=== PATIENT | female | born 1955 | race American Indian/Alaskan Native ===

== ENCOUNTER 2017-05-17 15:01 | Inpatient (IN) | payer OTHER ==
[~2017-05-17] VITALS: Ht 157.5 cm; Wt 69.1 kg
[2017-05-17 16:54] LABS: EOSINOPHIL (%) 0.1 % (0-5); HEMATOCRIT 39.8 % (36.0-46.0); IMMATURE GRANULOCYTE (%) 0.5 % (0.0-0.7); IMMATURE GRANULOCYTE COUNT 0.1 K/uL; INSTRUMENT ABS NEUTROPHIL CT 13.4 K/uL; LYMPHOCYTE COUNT 1.2 K/uL (1.0-2.8); MCH 30.5 PG (29.0-34.0); MCHC 33.4 G/DL (30.0-36.0); MCV 91.3 FL (83-99); MONOCYTE (%) 3.9 % (3-12); MONOCYTE COUNT 0.6 K/uL (0-0.8); NEUTROPHIL (%) 87.2 % (45-76); NEUTROPHIL COUNT 13.4 K/uL (1.8-6.4); PLATELET COUNT 193 K/uL (156-360); RBC DIS.WIDTH-CV 11.7 % (11.8-14.6); RBC DIS.WIDTH-SD 39.1 % (39-53); RED BLOOD COUNT 4.36 M/uL (3.80-5.20); WHITE BLOOD COUNT 15.3 K/uL (4.1-10.2)
[2017-05-17 17:00] LABS: PROTHROMBIN TIME 11.3 SEC (10.2-12.9)
[2017-05-17] MEDS ORDERED: METFORMIN HCL500 MG PO (17:00)
[2017-05-17] MEDS ORDERED: CRESTOR10 MG PO (17:00)
[2017-05-17] MEDS ORDERED: MICARDIS40 MG PO (17:01)
[2017-05-17 17:02] LABS: CHLORIDE 106 mEq/L (99-109); POTASSIUM 4.6 mEq/L (3.7-5.4); SODIUM 141 mEq/L (136-147)
[2017-05-17 17:03] LABS: GLUCOSE 160 mg/dL (70-99)
[2017-05-17 17:05] LABS: ANION GAP 12 MEQ/L (2-14)
[2017-05-17 17:07] LABS: GFR ESTIMATE (CALCULATED) > 59 mL/min/
[2017-05-17 17:08] LABS: UREA NITROGEN (BUN) 11 mg/dL (9-23)
[2017-05-17 21:56] VITALS: BP 141/78
[2017-05-17 23:09] VITALS: BP 131/65
[2017-05-18 03:54] VITALS: BP 124/61
[2017-05-18 08:04] VITALS: BP 121/67
[2017-05-18 10:36] VITALS: BP 123/63
[2017-05-18 15:08] VITALS: BP 114/65
[2017-05-18 16:04] LABS: POINT-OF-CARE METER ID UU14117124
[2017-05-18 19:54] LABS: POINT-OF-CARE METER ID UU13113675; POINT-OF-CARE USER ID ADMKMM76
[2017-05-18 21:21] VITALS: BP 91/60
[2017-05-18 21:58] LABS: POINT-OF-CARE METER ID UU14188577
[2017-05-19] VITALS (7 sets, daily range): BP systolic 97–137; BP diastolic 53–72
[2017-05-19 06:21] LABS: POINT-OF-CARE METER ID UU14188577
[2017-05-19 07:21] LABS: HEMATOCRIT 31.2 % (36.0-46.0); MCH 30.7 PG (29.0-34.0); MCV 93.1 FL (83-99); MEAN PLAT.VOLUME 9.5 uM^3 (9.5-12.4); PLATELET COUNT 144 K/uL (156-360); RBC DIS.WIDTH-CV 11.9 % (11.8-14.6); RBC DIS.WIDTH-SD 40.8 % (39-53); WHITE BLOOD COUNT 8.3 K/uL (4.1-10.2)
[2017-05-19 07:22] LABS: ANION GAP 4 MEQ/L (2-14); CHLORIDE 101 MEQ/L (99-109); GFR ESTIMATE (CALCULATED) > 59 mL/min/; GLUCOSE 158 mg/dL (70-99); POTASSIUM 4.4 MEQ/L (3.7-5.4); SAMPLE HEMOLYSIS CHECK 0; SAMPLE ICTERIC CHECK 0; SAMPLE LIPEMIA CHECK 0; SODIUM 135 MEQ/L (136-147); UREA NITROGEN (BUN) 6 mg/dL (9-23)
[2017-05-19 07:26] LABS: RED BLOOD COUNT 3.35 M/uL (3.80-5.20)
[2017-05-19 16:38] LABS: POINT-OF-CARE METER ID UU14188577
[2017-05-20 07:48] VITALS: BP 116/62
[2017-05-20 09:22] LABS: HEMATOCRIT 29.3 % (36.0-46.0); MCH 30.8 PG (29.0-34.0); MCHC 33.1 G/DL (30.0-36.0); MEAN PLAT.VOLUME 9.5 uM^3 (9.5-12.4); PLATELET COUNT 139 K/uL (156-360); RBC DIS.WIDTH-CV 11.9 % (11.8-14.6); RBC DIS.WIDTH-SD 40.5 % (39-53); RED BLOOD COUNT 3.15 M/uL (3.80-5.20); WHITE BLOOD COUNT 7.1 K/uL (4.1-10.2)
[2017-05-20 10:06] LABS: ANION GAP 5 MEQ/L (2-14); CHLORIDE 104 MEQ/L (99-109); GFR ESTIMATE (CALCULATED) > 59 mL/min/; GLUCOSE 206 mg/dL (70-99); POTASSIUM 4.1 MEQ/L (3.7-5.4); SAMPLE HEMOLYSIS CHECK 0; SAMPLE ICTERIC CHECK 0; SAMPLE LIPEMIA CHECK 0; SODIUM 137 MEQ/L (136-147); UREA NITROGEN (BUN) 10 mg/dL (9-23)
[2017-05-20 11:30] VITALS: BP 118/61
[2017-05-20 15:45] VITALS: BP 132/63
[2017-05-20 17:12] LABS: POINT-OF-CARE METER ID UU14208753
[2017-05-20 19:10] VITALS: BP 135/65
[2017-05-20 21:23] LABS: POINT-OF-CARE METER ID UU14208753
[2017-05-20 23:28] VITALS: BP 104/59
[2017-05-21 06:45] LABS: POINT-OF-CARE METER ID UU14117124
[2017-05-21 06:59] LABS: HEMATOCRIT 28.2 % (36.0-46.0); MCH 31.8 PG (29.0-34.0); MCV 93.4 FL (83-99); MEAN PLAT.VOLUME 9.5 uM^3 (9.5-12.4); PLATELET COUNT 151 K/uL (156-360); RBC DIS.WIDTH-SD 40.3 % (39-53); RED BLOOD COUNT 3.02 M/uL (3.80-5.20); WHITE BLOOD COUNT 6.1 K/uL (4.1-10.2)
[2017-05-21 07:24] LABS: ANION GAP 6 MEQ/L (2-14); CHLORIDE 106 MEQ/L (99-109); GFR ESTIMATE (CALCULATED) > 59 mL/min/; GLUCOSE 124 mg/dL (70-99); POTASSIUM 4.4 MEQ/L (3.7-5.4); SAMPLE HEMOLYSIS CHECK 0; SAMPLE ICTERIC CHECK 0; SAMPLE LIPEMIA CHECK 0; SODIUM 140 MEQ/L (136-147); UREA NITROGEN (BUN) 7 mg/dL (9-23)
[2017-05-21 07:50] VITALS: BP 122/73
[2017-05-21 11:57] LABS: POINT-OF-CARE METER ID UU14208753
[2017-05-21] MEDS ORDERED: LOVENOX40 MG/0.4 SC (13:41)
[2017-05-21] MEDS ORDERED: ENDOCET 5-3251 EACH PO (13:41)
[2017-05-21] MEDS ORDERED: MIRALAX17 GM PO (17:00)
[2017-05-21] MEDS ORDERED: COLACE100 MG PO (17:01)
[2017-05-21] MEDS ORDERED: MILK OF MAGN PO (17:04)
[2017-05-21] MEDS ORDERED: PRAVACHOL80 MG PO (17:25)
[2017-05-21] MEDS ORDERED: COZAAR50 MG PO (17:26)
[2017-05-21] MEDS ORDERED: PERCOCET 10/1 TABLET PO (17:37)
== END 2017-05-21 15:05 | DRG 494 ==
LOC: EME 15:01 → EDOF 17:47 → 3EAST 17:47 → ENRESERV 18:02 → 3EAST 18:32 → EDOF 20:22 → 3EAST 21:11
PROVIDERS: Emergency Medicine; Family Medicine; Orthopaedic Surgery
PROC: 0QSH06Z Reposition Left Tibia with Intramedullary Internal Fixation Device, Open Approach (ICD-10-PCS; principal; 2017-05-18)
DX: S82.102A Unspecified fracture of upper end of left tibia, initial encounter for closed fracture (principal); S89.202A Unspecified physeal fracture of upper end of left fibula, initial encounter for closed fracture; W10.9XXA Fall (on) (from) unspecified stairs and steps, initial encounter; I10 Essential (primary) hypertension; R94.31 Abnormal electrocardiogram [ECG] [EKG]; E11.9 Type 2 diabetes mellitus without complications; D72.829 Elevated white blood cell count, unspecified; E78.5 Hyperlipidemia, unspecified; R51 Headache; Z79.84 Long term (current) use of oral hypoglycemic drugs
CPT/HCPCS: 71010; 73590; 76000; 80048; 82306; 82948; 85025; 85027; 85610; 86850; 86900; 86901; 93005; 99281; 99285; C1713; J0131; J0690; J1170; J1650; J1885; J2250; J2270; J2405; J3010; J7050; J7120

== ENCOUNTER 2017-05-21 14:14 | Inpatient (IN) | payer OTHER ==
[~2017-05-21] VITALS: Ht 157.5 cm; Wt 47.8 kg
[~2017-05-21 14:14] MED LIST: CRESTOR10 MG PO; ENDOCET 5-3251 EACH PO; LOVENOX40 MG/0.4 SC; METFORMIN HCL500 MG PO; MICARDIS40 MG PO
[2017-05-21 15:57] VITALS: BP 125/63
[2017-05-21 16:41] LABS: POINT-OF-CARE METER ID UU13113720
[2017-05-21] MEDS ORDERED: MIRALAX17 GM PO (17:00)
[2017-05-21] MEDS ORDERED: COLACE100 MG PO (17:01)
[2017-05-21] MEDS ORDERED: MILK OF MAGN PO (17:04)
[2017-05-21] MEDS ORDERED: PRAVACHOL80 MG PO (17:25)
[2017-05-21] MEDS ORDERED: COZAAR50 MG PO (17:26)
[2017-05-21] MEDS ORDERED: PERCOCET 10/1 TABLET PO (17:37)
[2017-05-21 20:41] LABS: POINT-OF-CARE METER ID UU13113720
[2017-05-22 04:07] VITALS: BP 129/63
[2017-05-22 05:19] LABS: HEMATOCRIT 28.1 % (36.0-46.0); MCH 30.4 PG (29.0-34.0); MCHC 32.7 G/DL (30.0-36.0); MCV 92.7 FL (83-99); MEAN PLAT.VOLUME 9.4 uM^3 (9.5-12.4); PLATELET COUNT 175 K/uL (156-360); RBC DIS.WIDTH-CV 11.9 % (11.8-14.6); RBC DIS.WIDTH-SD 40.3 % (39-53); RED BLOOD COUNT 3.03 M/uL (3.80-5.20); WHITE BLOOD COUNT 6.3 K/uL (4.1-10.2)
[2017-05-22 05:40] LABS: ALKALINE PHOSPHATASE 48 IU/L (3-129); ANION GAP 6 MEQ/L (2-14); CHLORIDE 104 MEQ/L (99-109); GFR ESTIMATE (CALCULATED) > 59 mL/min/; GLUCOSE 118 mg/dL (70-99); HDL CHOLESTEROL 29 MG/DL (Desirable>=50); LDL CHOLESTEROL 40 mg/dL (Desirable<100); NON-HDL CHOLESTEROL 59 mg/dL (Desirable<160); POTASSIUM 4.2 MEQ/L (3.7-5.4); SAMPLE HEMOLYSIS CHECK 0; SAMPLE ICTERIC CHECK 0; SAMPLE LIPEMIA CHECK 0; SODIUM 139 MEQ/L (136-147); TOTAL BILIRUBIN 1.2 MG/DL (0.0-1.0); TOTAL CHOLESTEROL 88 mg/dL (Desirable<200); TRIGLYCERIDES 94 MG/DL (Normal: <150); UREA NITROGEN (BUN) 9 mg/dL (9-23)
[2017-05-22 07:14] LABS: POINT-OF-CARE METER ID UU14174215; POINT-OF-CARE USER ID AHSSSJB31
[2017-05-22 07:21] LABS: Estimated Average Glucose 126 mg/dL (70-123)
[2017-05-22 11:49] LABS: POINT-OF-CARE METER ID UU14174215; POINT-OF-CARE USER ID ENVGAF
[2017-05-22 15:13] VITALS: BP 116/65
[2017-05-22 16:47] LABS: POINT-OF-CARE METER ID UU13113720
[2017-05-22 21:00] LABS: POINT-OF-CARE METER ID UU13113720
[2017-05-23 05:43] VITALS: BP 128/65
[2017-05-23 07:04] LABS: POINT-OF-CARE METER ID UU14174215; POINT-OF-CARE USER ID ENVGAF
[2017-05-23 11:13] LABS: POINT-OF-CARE METER ID UU14174215
[2017-05-23 15:10] VITALS: BP 120/59
[2017-05-23 16:13] LABS: POINT-OF-CARE METER ID UU14174215
[2017-05-23 21:11] LABS: POINT-OF-CARE METER ID UU13113720
[2017-05-24 04:46] VITALS: BP 117/63
[2017-05-24 06:27] LABS: POINT-OF-CARE METER ID UU13113720; POINT-OF-CARE USER ID ENVGAF
[2017-05-24 11:17] LABS: POINT-OF-CARE METER ID UU13113720; POINT-OF-CARE USER ID ENVGAF
[2017-05-24 15:23] VITALS: BP 108/59
[2017-05-24 16:45] LABS: POINT-OF-CARE METER ID UU13113720
[2017-05-24 20:32] LABS: POINT-OF-CARE METER ID UU14174215
[2017-05-25 05:48] VITALS: BP 13/57
[2017-05-25 07:13] LABS: MCH 30.7 PG (29.0-34.0); MCHC 32.7 G/DL (30.0-36.0); MEAN PLAT.VOLUME 8.7 uM^3 (9.5-12.4); PLATELET COUNT 220 K/uL (156-360); RBC DIS.WIDTH-CV 12.7 % (11.8-14.6); RBC DIS.WIDTH-SD 42.5 % (39-53); RED BLOOD COUNT 3.19 M/uL (3.80-5.20); WHITE BLOOD COUNT 6.8 K/uL (4.1-10.2)
[2017-05-25 07:28] LABS: POINT-OF-CARE METER ID UU14174215; POINT-OF-CARE USER ID AHSSSJB31
[2017-05-25 07:54] LABS: ANION GAP 5 MEQ/L (2-14); CHLORIDE 105 MEQ/L (99-109); GFR ESTIMATE (CALCULATED) > 59 mL/min/; GLUCOSE 111 mg/dL (70-99); POTASSIUM 4.5 MEQ/L (3.7-5.4); SAMPLE HEMOLYSIS CHECK 0; SAMPLE ICTERIC CHECK 0; SAMPLE LIPEMIA CHECK 0; SODIUM 140 MEQ/L (136-147); UREA NITROGEN (BUN) 9 mg/dL (9-23)
[2017-05-25 11:47] LABS: POINT-OF-CARE METER ID UU14174215; POINT-OF-CARE USER ID AHSSSJB31
[2017-05-25 15:36] VITALS: BP 109/59
[2017-05-25 16:22] LABS: POINT-OF-CARE METER ID UU14174215
[2017-05-25 21:04] LABS: POINT-OF-CARE METER ID UU14174215
[2017-05-26 05:05] VITALS: BP 105/63
[2017-05-26 07:08] LABS: POINT-OF-CARE METER ID UU13113720; POINT-OF-CARE USER ID ENVGAF
[2017-05-26 11:11] LABS: POINT-OF-CARE METER ID UU13113720
[2017-05-26 15:20] VITALS: BP 107/57
[2017-05-26 17:47] LABS: POINT-OF-CARE METER ID UU14174215
[2017-05-26 21:17] LABS: POINT-OF-CARE METER ID UU14174215
[2017-05-27 05:25] VITALS: BP 112/59
[2017-05-27 06:58] LABS: POINT-OF-CARE METER ID UU13113720; POINT-OF-CARE USER ID ENVGAF
[2017-05-27 11:52] LABS: POINT-OF-CARE METER ID UU13113720; POINT-OF-CARE USER ID ENVGAF
[2017-05-27 15:52] VITALS: BP 109/50
[2017-05-27 16:42] LABS: POINT-OF-CARE METER ID UU13113720
[2017-05-27 20:54] LABS: POINT-OF-CARE METER ID UU14174215
[2017-05-28 05:37] VITALS: BP 109/64
[2017-05-28 07:27] LABS: HEMATOCRIT 31.3 % (36.0-46.0); MCH 31.8 PG (29.0-34.0); MCHC 33.5 G/DL (30.0-36.0); MCV 94.8 FL (83-99); MEAN PLAT.VOLUME 8.7 uM^3 (9.5-12.4); PLATELET COUNT 234 K/uL (156-360); RBC DIS.WIDTH-CV 13.4 % (11.8-14.6); RBC DIS.WIDTH-SD 44.1 % (39-53)
[2017-05-28 07:55] LABS: POINT-OF-CARE METER ID UU14174215
[2017-05-28 07:57] LABS: ALKALINE PHOSPHATASE 62 IU/L (3-129); ANION GAP 6 MEQ/L (2-14); CHLORIDE 103 MEQ/L (99-109); GFR ESTIMATE (CALCULATED) > 59 mL/min/; GLUCOSE 122 mg/dL (70-99); SAMPLE HEMOLYSIS CHECK 0; SAMPLE ICTERIC CHECK 0; SAMPLE LIPEMIA CHECK 0; SODIUM 138 MEQ/L (136-147); TOTAL BILIRUBIN 0.9 MG/DL (0.0-1.0); UREA NITROGEN (BUN) 14 mg/dL (9-23)
[2017-05-28 12:01] LABS: POINT-OF-CARE METER ID UU13113720
[2017-05-28 15:19] VITALS: BP 98/55
[2017-05-28 16:50] LABS: POINT-OF-CARE METER ID UU13113720
[2017-05-28 21:18] LABS: POINT-OF-CARE METER ID UU13113720
[2017-05-29 05:33] VITALS: BP 107/66
[2017-05-29 07:26] LABS: POINT-OF-CARE METER ID UU13113720; POINT-OF-CARE USER ID ENVGAF
[2017-05-29] MEDS ORDERED: THERAGRAN1 TABLET PO (08:19)
[2017-05-29] MEDS ORDERED: SENNA PLUS TAB1 EACH PO (08:19)
[2017-05-29] MEDS ORDERED: VITAMIN D2000 UNI1 PO (08:19)
[2017-05-29] MEDS ORDERED: MIRALAX17 GM PO (08:19)
[2017-05-29] MEDS ORDERED: COLACE100 MG PO (08:19)
[2017-05-29] MEDS ORDERED: GABAPENTIN100 MG PO (08:19)
[2017-05-29 11:47] LABS: POINT-OF-CARE METER ID UU14174215; POINT-OF-CARE USER ID ENVGAF
== END 2017-05-29 15:16 | disposition home health service (06) | DRG 560 ==
LOC: 3WEST 14:14 → ENPENDDIS 05-29 → 3WEST 05-29 15:16
PROVIDERS: Physical Medicine & Rehabilitation Pain Medicine
PROC: F07M0ZZ Range of Motion and Joint Mobility Treatment of Musculoskeletal System - Whole Body (ICD-10-PCS; principal; 2017-05-21)
DX: S82.202D Unspecified fracture of shaft of left tibia, subsequent encounter for closed fracture with routine healing (principal); S82.402D Unspecified fracture of shaft of left fibula, subsequent encounter for closed fracture with routine healing; E11.9 Type 2 diabetes mellitus without complications; I10 Essential (primary) hypertension; E55.9 Vitamin D deficiency, unspecified; D69.6 Thrombocytopenia, unspecified; E83.51 Hypocalcemia; D62 Acute posthemorrhagic anemia; R26.9 Unspecified abnormalities of gait and mobility; M79.675 Pain in left toe(s); L03.116 Cellulitis of left lower limb; E77.8 Other disorders of glycoprotein metabolism; R60.9 Edema, unspecified; M79.662 Pain in left lower leg; Z98.890 Other specified postprocedural states; Z68.1 Body mass index [BMI] 19.9 or less, adult; S00-T88 Injury, poisoning and certain other consequences of external causes
CPT/HCPCS: 73590; 80048; 80053; 80061; 82948; 83036; 85027; 93971; 97110 GO; 97530 GP; J1650

== ENCOUNTER → 2018-04-12 | Outpatient (CLI) | payer SELFPAY ==
[~2018-04-12] MED LIST changes: +ASPIR 8181 M1 PO; +ASPIR-TRIN325 M1 PO; +COLACE100 MG PO; +COZAAR50 MG PO; +GABAPENTIN100 MG PO; +MILK OF MAGN PO; +MIRALAX17 GM PO; +PERCOCET 10/1 TABLET PO; +PRAVACHOL80 MG PO; +SENNA PLUS TAB1 EACH PO; +THERAGRAN1 TABLET PO; +VITAMIN D2000 UNI1 PO
[2018-04-12 10:21] LABS: HEMATOCRIT 39.8 % (36.0-46.0); HEMOGLOBIN 13.5 G/DL (11.9-15.5); MCH 30.6 PG (29.0-34.0); MCHC 33.9 G/DL (30.0-36.0); MCV 90.2 FL (83-99); PLATELET COUNT 205 K/uL (156-360); RBC DIS.WIDTH-CV 13.2 % (11.8-14.6); RBC DIS.WIDTH-SD 42.9 % (39-53); RED BLOOD COUNT 4.41 M/uL (3.80-5.20); WHITE BLOOD COUNT 5.2 K/uL (4.1-10.2)
[2018-04-12 10:34] LABS: PTT 31.8 SEC (25-37)
== END | disposition home or self-care (01) ==
LOC: OPR 09:47 → EDSTATUS 10:00 → OPR 10:00
PROVIDERS: Internal Medicine
PROC: 0QB53ZX Excision of Left Acetabulum, Percutaneous Approach, Diagnostic (ICD-10-PCS; principal; 2018-04-12)
DX: C85.99 Non-Hodgkin lymphoma, unspecified, extranodal and solid organ sites (principal); E11.9 Type 2 diabetes mellitus without complications; I10 Essential (primary) hypertension; M81.0 Age-related osteoporosis without current pathological fracture; Z90.49 Acquired absence of other specified parts of digestive tract; Z79.84 Long term (current) use of oral hypoglycemic drugs; Z79.82 Long term (current) use of aspirin
CPT/HCPCS: 77012; 82948; 85027; 85610; 85730; 88305; 88311; 88341 TC; 88342 TC; J3010